=== PATIENT | female | born 1980 | race Asian ===

== ENCOUNTER 2016-12-18 | Outpatient (CLI) | payer OTHER | END 2016-12-18 19:05 | disposition home or self-care (01) ==

== ENCOUNTER 2016-12-18 08:00 | Outpatient (CLI) | payer OTHER | END 2016-12-18 23:59 | disposition home or self-care (01) | DX: Z36 Encounter for antenatal screening of mother (principal) ==

== ENCOUNTER 2016-12-25 | Outpatient (CLI) | payer OTHER | END 2016-12-25 16:35 | disposition home or self-care (01) ==

== ENCOUNTER 2016-12-29 08:32 | Outpatient (CLI) | payer OTHER | END 2016-12-29 08:33 | disposition home or self-care (01) | DX: Z36 Encounter for antenatal screening of mother (principal) ==

== ENCOUNTER 2017-01-01 | Outpatient (CLI) | payer OTHER | END 2017-01-01 16:10 | disposition home or self-care (01) ==

== ENCOUNTER 2017-01-08 | Outpatient (CLI) | payer OTHER | END 2017-01-08 16:35 | disposition home or self-care (01) ==

== ENCOUNTER 2017-01-13 19:35 | Inpatient (IN) | payer OTHER ==
[~2017-01-13 19:35] MED LIST: DINOPROSTONE 10 MG SUPP VG ONE; ONDANSETRON 4 MG/2 ML VIAL IVP PRN; SODIUM CHLORIDE FLUSH 0.9% 10 ML SYRINGE IVP ONE; SODIUM CHLORIDE FLUSH 0.9% 10 ML SYRINGE IVP PRN; fentaNYL 100 MCG/2 ML VIAL IVP PRN
[2017-01-13] MEDS: LACTATED RINGERS 1,000 ML IV SCH (20:40)
[2017-01-13] MEDS ORDERED: LACTATED RINGERS 1,000 ML IV SCH (21:00)
[2017-01-13] MEDS ORDERED: SUFENTA/BUPIV 0.4 MCG/0.0625% 150 ML EP ONE (21:13)
[2017-01-13] MEDS ORDERED: ONDANSETRON 4 MG/2 ML VIAL IVP PRN (21:47)
[2017-01-13] MEDS ORDERED: NALBUPHINE 20 MG/ML AMP IVP PRN (21:47)
[2017-01-13] MEDS ORDERED: LACTATED RINGERS 500 ML IV SCH (21:47)
[2017-01-13] MEDS ORDERED: diphenhydrAMINE INJ 50 MG/ML VIAL IVP PRN (21:47)
[2017-01-13] MEDS ORDERED: ePHEDrine 50 MG/ML AMP IVP PRN (21:47)
[2017-01-13] MEDS ORDERED: SUFENTA/BUPIV 0.4 MCG/0.0625% EPIDURAL 150 ML EP PRN (21:47)
[2017-01-13] MEDS ORDERED: NALOXONE 0.4 MG/ML VIAL IVP PRN (21:47)
[2017-01-13] MEDS ORDERED: METOCLOPRAMIDE 10 MG/2 ML VIAL IVP PRN (21:47)
[2017-01-13] MEDS ORDERED: glyBURIDE 2.5 MG TABLET PO ONE (22:38)
[2017-01-14] MEDS ORDERED: OXYTOCIN/LACTATED RINGERS 250 ML IV PRN (00:30)
[2017-01-14] MEDS ORDERED: OXYTOCIN/LACTATED RINGERS 250 ML IV ONE (00:32)
[2017-01-14] MEDS ORDERED: HYDROCORTISONE/PRAMOXINE 10 GM PR PRN (00:38)
[2017-01-14] MEDS ORDERED: diphenhydrAMINE 25 MG CAPSULE PO PRN (00:38)
[2017-01-14] MEDS ORDERED: MAGNESIUM HYDROXIDE 2,400 MG/30 ML UDC PO PRN (00:38)
[2017-01-14] MEDS ORDERED: HYDROcod/ACETAM 5/325 MG TABLET PO PRN (01:24)
[2017-01-14] MEDS: IBUPROFEN 600 MG TABLET PO SCH ×3 (02:01→17:52)
[2017-01-14] MEDS ORDERED: glyBURIDE 2.5 MG TABLET PO SCH (08:00)
[2017-01-14] MEDS: DOCUSATE SODIUM 100 MG CAPSULE PO SCH ×2 (08:04→21:33)
[2017-01-14] MEDS: SIMETHICONE CHEW 80 MG TABLET PO SCH ×2 (08:04→17:52)
[2017-01-14] MEDS: LACTATED RINGERS 1,000 ML IV SCH ×3 (16:40→16:42)
[2017-01-14] MEDS: SODIUM CHLORIDE FLUSH 0.9% 10 ML SYRINGE IVP SCH ×3 (16:40→16:43)
[2017-01-15] MEDS: IBUPROFEN 600 MG TABLET PO SCH ×3 (00:24→15:00)
[2017-01-15] MEDS: DOCUSATE SODIUM 100 MG CAPSULE PO SCH (13:01)
== END 2017-01-15 18:15 | disposition home or self-care (01) | DRG 775 ==
PROC: 10E0XZZ Delivery of Products of Conception, External Approach (ICD-10-PCS; principal; 2017-01-14)
PROC: 3E033VJ Introduction of Other Hormone into Peripheral Vein, Percutaneous Approach (ICD-10-PCS; 2017-01-14)
DX: O24.425 Gestational diabetes mellitus in childbirth, controlled by oral hypoglycemic drugs (principal); Z68.41 Body mass index [BMI] 40.0-44.9, adult; O66.0 Obstructed labor due to shoulder dystocia; O99.52 Diseases of the respiratory system complicating childbirth; Z3A.39 39 weeks gestation of pregnancy; Z37.0 Single live birth; J06.9 Acute upper respiratory infection, unspecified; O36.63X0 Maternal care for excessive fetal growth, third trimester, not applicable or unspecified; O99.214 Obesity complicating childbirth; E66.01 Morbid (severe) obesity due to excess calories

== ENCOUNTER 2017-01-19 11:23 | Outpatient (CLI) | payer OTHER | END 2017-01-19 11:24 | disposition home or self-care (01) | DX: O12.05 Gestational edema, complicating the puerperium (principal) ==

== ENCOUNTER 2018-11-02 09:14 | Emergency (ER) | payer OTHER ==
[2018-11-02 09:23] VITALS: BP 144/97
[2018-11-02] MEDS ORDERED: DEXAMETHASONE 10 MG/ML VIAL PO STA (09:23)
--- NOTE | 2018-11-02 09:30 | ED Physician Documentation ---
PD HPI HEENT - Stated complaint Stated Complaint: SORE THROAT - Chief complaint Chief Complaint: Heent - History obtained from History obtained from: Patient - History of Present Illness Timing - onset: How many days ago (3) Timing - duration: Days (3) Timing - details: Gradual onset, Still present Location: Throat Improves: Medication Worsens: Swalllowing Associated symptoms: Congestion, Swollen nodes. No: Fever, Cough Similar symptoms before: Has not had sx before Recently seen: Clinic - Additional information Additional information: 38-year-old female who works as a patient registrar at the [employer] has developed a sore throat over the past 3 days she denies any cough or fever associated with this. She has been out to see the primary care doctor at the [facility] and had a swab done of the throat was negative for strep. She was seen in [place] [facility] department here in the emergency department by 1 of our physicians and given a dose of dexamethasone yesterday which improved her symptoms dramatically and her symptoms have returned today. She states that she has some pain radiating up into her right ear and pain with swallowing but she denies any fever or cough. Review of Systems Constitutional: denies: Fever, Chills, Myalgias Eyes: denies: Decreased vision Ears: reports: Ear pain Nose: reports: Congestion. denies: Rhinorrhea / runny nose Throat: reports: Sore throat. denies: Dental pain / toothache Cardiac: denies: Chest pain / pressure Respiratory: denies: Dyspnea, Cough GI: denies: Abdominal Pain, Nausea, Vomiting : denies: Dysuria PD PAST MEDICAL HISTORY - Past Surgical History Past Surgical History: No - Present Medications Home Medications: Ambulatory Orders Medication Instructions Recorded Confirmed Amox/Clav 875/125 [Augmentin] 1 each PO Q12H #20 tablet 11/02/18 Ibuprofen 11/02/18 Norgestimate-Ethinyl Estradiol 11/02/18 [Ortho Tri-Cyclen 28 Tablet] - Allergies Allergies/Adverse Reactions: Allergies Allergy/AdvReac Type Severity Reaction Status Date / Time No Known Drug Allergies Allergy Verified 01/08/17 15:58 - Social History Does the pt smoke?: No Smoking Status: Never smoker Does the pt drink ETOH?: No Does the pt have substance abuse?: No - Immunizations Immunizations are current?: Yes PD ED PE NORMAL - Vitals Vital signs reviewed: Yes (hypertensive ) - General General: Alert and oriented X 3, No acute distress, Well developed/nourished - HEENT HEENT: Atraumatic, PERRL, EOMI, Ears normal, Other (There is marked swelling and distortion of the right tonsil and the left is inflamed but much less involved. The right is edematous. There are crypts and there is exudate. The distortion of the tonsil is concerning for robin-tonislar abscess. ) - Neck Neck: Supple, no meningeal sign, No bony TTP, Other (tender submandibular adenopathy ) - Cardiac Cardiac: RRR, No murmur - Respiratory Respiratory: No respiratory distress, Clear bilaterally - Abdomen Abdomen: Soft, Non tender - Back Back: No CVA TTP, No spinal TTP - Derm Derm: Normal color, Warm and dry, No rash - Extremities Extremities: No deformity, No edema - Neuro Neuro: Alert and oriented X 3, bioinformatics associate 2-12 intact, No motor deficit, No sensory deficit, Normal speech Eye Opening: Spontaneous Motor: Obeys Commands Verbal: Oriented GCS Score: 15 - Psych Psych: Normal mood, Normal affect Results - Vitals Vitals: Vital Signs - 24 hr 11/02/18 09:17 Temperature 36.1 C L Heart Rate 76 Respiratory 16 Rate Blood Pressure 144/97 H O2 Saturation 100 Oxygen O2 Source Room air PD MEDICAL DECISION MAKING - ED course Complexity details: considered differential, d/w patient ED course: 38 y/o female with marked swelling especially to the right tonsil has had a negative rapid strep. Her exam is consistent with the possibilitiy of robin- tonsilar abscess and she is administered a second dose of decadron, given a script for augmentin and a note for work for 3 days. She is not on an ISMAEL inhibitor. Departure - Departure Disposition: 01 Home, Self Care Clinical Impression: Peritonsillar abscess Condition: Stable Instructions: ED Peritonsillar Infec Abx No I andD Follow-Up: SILVIA HYMAN [Primary Care Provider] - [facility] [Provider Group] Prescriptions: Amox/Clav 875/125 [Augmentin] 1 each PO Q12H #20 tablet Forms: Activity restrictions
[2018-11-02] MEDS ORDERED: CHERRY SYRUP 10 ML UDC PO ONE (09:31)
== END 2018-11-02 09:41 | disposition home or self-care (01) ==
LOC: ED 09:14
DX: J36 Peritonsillar abscess (principal)
CPT/HCPCS: 99283; A9270